=== PATIENT | male | born 1975 | race Caucasian/White ===

== ENCOUNTER 2016-10-07 03:24 | Inpatient (IN) ==
[2016-10-01 10:33] LABS: MANUAL DIFF NEEDED? NO
[2016-10-01 10:40] LABS: BASO% 0.7 % (0.0-0.8); EOS# 0.13 X1000 (0.0-0.7); EOS% 2.2 % (0.0-10.0); HEMATOCRIT 41.6 % (42.0-52.0); HEMOGLOBIN 14.2 g/dL (14.0-18.0); LYMPH# 1.95 X1000 (1.2-3.4); LYMPH% 32.5 % (20.5-51.1); MCH 30.4 PG (27-31); MCHC 34.1 g/dL (33-37); MCV 89.1 FL (81-99); NEUT% 49.6 % (42.2-75.2); PLT 279 X1000 (130-400); RBC 4.67 XMIL (4.7-6.1)
[2016-10-01 10:53] LABS: INR 0.97; PROTIME 10.2 Seconds (9.2-11.7); PTT 23.8 Seconds (22.0-36.0)
[2016-10-01 11:32] LABS: AGAP 13; BUN 10 mg/dL (8-22); CALCIUM 10.1 mg/dL (8.8-10.2); CHLORIDE 103 mmol/L (98-107); COSMO 275; POTASSIUM 4.7 mmol/L (3.5-5.1); SODIUM 138 mmol/L (136-145); TCO2 22 mmol/L (25-35)
[2016-10-07] MEDS ORDERED: COLACE ONE (06:25)
[2016-10-07] MEDS ORDERED: PEPCID ONE (06:26)
[2016-10-07] MEDS ORDERED: REGLAN ONE (06:26)
[2016-10-07] MEDS ORDERED: VALIUM ONE (06:26)
[2016-10-07] MEDS ORDERED: LYRICA ONE (06:26)
[2016-10-07] MEDS ORDERED: CELEBREX ONE (06:27)
[2016-10-07] MEDS ORDERED: LR 1,000 ML ONE ×2 (06:27→09:35)
[2016-10-07] MEDS ORDERED: LR 0 ML ONE (06:27)
[2016-10-07] MEDS ORDERED: TORADOL ONE (06:35)
[2016-10-07] MEDS ORDERED: MARCAINE 0.25% PF/EPI 1:200,000 ONE (06:36)
[2016-10-07] MEDS ORDERED: DURAMORPH ONE (06:36)
[2016-10-07] MEDS ORDERED: SODIUM CHLORIDE 0.9% ONE (06:36)
[2016-10-07] MEDS ORDERED: CYKLOKAPRON 1,000 MG/NS 1,000 MG/100 ML IVPB ONE (06:36)
[2016-10-07] MEDS ORDERED: CLAVE SECONDARY SET 11953 ONE ×2 (06:37→09:35)
[2016-10-07] MEDS ORDERED: NEOSPORIN G.U. IRRIGANT ONE (06:37)
[2016-10-07] MEDS ORDERED: EXPAREL 1.3% ONE (06:37)
[2016-10-07 06:44] LABS: URINE MICRO REVIEW NEEDED? NO; URINE SOURCE VOIDED
[2016-10-07 06:49] LABS: BILIRUBIN URINE NEGATIVE (NEGATIVE); BLOOD URINE NEGATIVE (NEGATIVE); COLOR YELLOW; GLUCOSE URINE NEGATIVE (NEGATIVE); LEUKOCYTES URINE NEGATIVE (NEGATIVE); NITRITE URINE NEGATIVE (NEGATIVE); PH URINE 5.5; PROTEIN URINE NEGATIVE (NEGATIVE); SP GRAVITY URINE 1.019; TURBIDITY URINE CLEAR (CLEAR); UROBILINOGEN URINE NORMAL (NORMAL)
[2016-10-07] MEDS ORDERED: KEFZOL 2 GM/D5W 2 GM/50 ML IVPB ONE (06:52)
--- NOTE | 2016-10-07 06:56 | HISTORY AND PHYSICAL ---
CHIEF COMPLAINT: Right hip pain. HISTORY OF PRESENT ILLNESS: This is a 41-year-old, white male with a history of bilateral degenerative hips. He had the left done in August and did well. Now, he is ready for his right hip replacement. He has been treated conservatively without relief. He was evaluated in the office and now ready for the right hip prosthesis. The surgical procedure, as well as risks and benefits were explained to patient at this time and he is ready to proceed. PAST MEDICAL HISTORY/ALLERGIES: Not allergic to any medications. PAST SURGERIES: T and A, appendectomy, left total hip arthroplasty. SERIOUS ILLNESSES: None. REGULAR MEDICATIONS: [place]enberg p.r.n. pain. and Flonase p.r.n. allergies. REVIEW OF SYSTEMS: HEENT: No history of migraines, dizziness, loss conscious or CVA. Respiratory: No history of asthma, emphysema, or shortness of breath. He is nonsmoker. Abdomen: No history of ulcer or digestive disorders. No history of bowel or bladder abnormalities. PHYSICAL EXAMINATION: GENERAL: This is a 41-year-old male, alert and oriented. His primary care physician is Dr. Chauhan. HEENT: Pupils equal, round, reactive. NECK: Good range of motion without adenopathy. RESPIRATORY: Respirations equal, unlabored, clear bilaterally. HEART: Regular rate and rhythm. ABDOMEN: Soft, nontender. Bowel sounds present. EXTREMITIES: He complains of pain about his right hip. He states he sometimes has difficulty walking due to the pain. The pain sometimes radiates down his leg. IMPRESSION: Degenerative disease, right hip. PLAN: Admit at this time for right total hip arthroplasty. Dictated by Brett Casillas RN for Lucio Cesar MD This chart was documented by the indicated scribe, Brett Casillas RN and accurately reflects the services I performed and decisions made by me, Lucio Cesar MD, as attested by the provider's signature. cc: Lucio Cesar MD
[2016-10-07] MEDS ORDERED: MORPHINE IV PRN (06:59)
[2016-10-07 07:14] LABS: UR EPITHELIAL CELLS <10 /HPF (<10); URINE BACTERIA NEGATIVE /HPF; URINE RBC <10 /HPF (<10); URINE WBC <10 /HPF (<10)
[2016-10-07 08:12] LABS: URINE SOURCE CATH
[2016-10-07 08:17] LABS: BILIRUBIN URINE NEGATIVE (NEGATIVE); BLOOD URINE NEGATIVE (NEGATIVE); CLARITY CLEAR (CLEAR); COLOR YELLOW; GLUCOSE URINE NEGATIVE (NEGATIVE); LEUKOCYTES URINE NEGATIVE (NEGATIVE); NITRITE URINE NEGATIVE (NEGATIVE); PH URINE 6.5; PROTEIN URINE NEGATIVE (NEGATIVE); SP GRAVITY URINE 1.015; UROBILINOGEN URINE 0.2 EU/dL (0.2-1.0)
[2016-10-07 08:22] LABS: URINE EPITHELIAL CELLS <10 /HPF (<10); URINE RBC <10 /HPF (<10); URINE WBC <10 /HPF (<10)
[2016-10-07] MEDS ORDERED: NS 1,000 ML ONE (09:14)
[2016-10-07] MEDS ORDERED: FENTANYL ONE (09:16)
[2016-10-07] MEDS ORDERED: DIPRIVAN 1% ONE (09:17)
[2016-10-07] MEDS ORDERED: MORPHINE ONE (09:26)
[2016-10-07] MEDS ORDERED: LABETALOL (DOSE) ONE (09:34)
[2016-10-07] MEDS ORDERED: ZOFRAN ONE (09:34)
[2016-10-07] MEDS ORDERED: NORCURON ONE (09:34)
[2016-10-07] MEDS ORDERED: NEOSTIGMINE ONE (09:34)
[2016-10-07] MEDS ORDERED: DECADRON ONE (09:35)
[2016-10-07] MEDS ORDERED: XYLOCAINE-MPF 2% ONE (09:35)
[2016-10-07] MEDS ORDERED: QUELICIN (DOSE) ONE (09:35)
[2016-10-07] MEDS ORDERED: ROBINUL ONE (09:35)
[2016-10-07] MEDS ORDERED: OFIRMEV 1000 MG/ISOTONIC SOLN 1,000 MG/100 ML BOTTLE ONE (09:35)
--- NOTE | 2016-10-07 09:50 | OPERATIVE NOTE ---
PROCEDURE DATE: 10/07/2016 PREOPERATIVE DIAGNOSIS: Avascular necrosis, right hip. POSTOPERATIVE DIAGNOSIS: Avascular necrosis, right hip. PROCEDURE PERFORMED: Right anterior hip replacement. SURGEON: Oskar Cesar MD ADVERTISING SPACE CLERK: LEIDY Hall ANESTHESIA: General. COMPLICATIONS: None. INDICATIONS FOR PROCEDURE: This is a 41-year-old male with right avascular necrosis of the hip, who presents for surgical hip replacement. Risks, benefits, and no guarantees were discussed, and the patient was willing to proceed. PROCEDURE IN DETAIL: He was taken to the operating room and satisfactory anesthesia obtained. The right hip was prepped and draped in the usual sterile fashion. He was transferred to the [place] table, where he was prepped and draped and a time-out taken to confirm operative site, procedure, and patient. An anterior approach to the right hip was then undertaken with an incision starting 1 cm distal and lateral to the anterior superior iliac spine. Dissection was carried down to the tensor fascia duane membrane which was split in line with the incision. Blunt dissection along the inner membrane of the tensor was undertaken to the anterior aspect of the hip capsule. Retractors were placed over the superior and inferior aspect of the femoral neck and a capsulotomy incision made. A femoral neck osteotomy was made and the femoral head removed. Sequential reaming of the acetabulum was undertaken to a 59 reamer. A DePuy [place] REYES coated 60 outer diameter cup was then impacted in the acetabulum with secure press-fit fixation under fluoroscopic guidance. This was positioned in roughly 45 degrees of abduction and 10 degrees to 15 degrees of anteversion. A 25 length screw was placed in the 12 o'clock position of the cup with a 36 inner diameter, 0 degree polyethylene liner. The liner was impacted with secure fixation. The [place] table was used to extend and externally rotate the femur to facilitate broaching of the proximal femur. Sequential broaching with a Xochitl (So-Shee) Gold minesuy Corail broach system up to a size 12 stem was undertaken with good fit and fill. A standard neck geometry with a +5 head was then trialed with good restorationist of the neck length and leg length and stability. The trial stem was removed and a Corail 12 standard neck geometry stem was impacted in the proximal femur with secure axial and rotational stability. A ceramic 36, +5 neck head was impacted on the May taper and the hip reduced. Final range of motion was assessed with no posterior instability and no anterior instability with the hip in roughly 15 degrees of extension and 80 degrees of external rotation. The C-arm was used to verify accurate fracture reduction, hardware placement, and restorationist of leg length. The wound was copiously irrigated with irrigant. A Hemovac drain was placed and brought out through the lateral aspect. The joint capsule was injected with Exparel for pain management. The fascia of the tensor was repaired with a running 0 Vicryl the subcu with 2-0 Vicryl, and the skin with skin belen. Sterile dressings completed the closure and the patient was recovered from anesthesia and transferred to the recovery room in stable condition. No intraoperative complications were noted. Instrument and sponge counts were correct at the time of closure. cc: Lucio Cesar MD
[2016-10-07] MEDS: DILAUDID ONE ×2 (09:59→14:54)
[2016-10-07] MEDS: NS 1,000 ML IV SCH ×2 (10:39→20:20)
[2016-10-07] MEDS: FLONASE NAS SCH (10:39)
[2016-10-07] MEDS: CELEBREX PO SCH (10:40)
[2016-10-07] MEDS: COLACE PO SCH ×2 (10:40→20:19)
[2016-10-07] MEDS: NORCO-10 PO PRN ×3 (11:57→20:19)
[2016-10-07] MEDS ORDERED: KEFZOL 1 GM/D5W 1 GM/50 ML IVPB IV SCH (15:00)
[2016-10-07] MEDS: PERIDEX MT SCH (20:20)
[2016-10-07] MEDS ORDERED: KEFZOL 2 GM/D5W 2 GM/50 ML IVPB IV ONE (23:30)
[2016-10-08] MEDS: NORCO-10 PO PRN ×4 (00:19→16:26)
[2016-10-08] MEDS: NS 1,000 ML IV SCH ×2 (04:16→09:56)
[2016-10-08] MEDS ORDERED: XARELTO PO SCH (06:00)
[2016-10-08 06:24] LABS: HEMATOCRIT 32.8 % (42.0-52.0); HEMOGLOBIN 10.7 g/dL (14.0-18.0)
[2016-10-08 07:23] LABS: AGAP 13; BUN 11 mg/dL (8-22); CALCIUM 9.3 mg/dL (8.8-10.2); CHLORIDE 101 mmol/L (98-107); COSMO 274; POTASSIUM 4.3 mmol/L (3.5-5.1); SODIUM 137 mmol/L (136-145); TCO2 23 mmol/L (25-35)
[2016-10-08] MEDS: PERIDEX MT SCH (08:37)
[2016-10-08] MEDS: COLACE PO SCH (08:37)
[2016-10-08] MEDS: CELEBREX PO SCH (08:37)
[2016-10-08] MEDS: FLONASE NAS SCH (08:37)
[2016-10-08 11:26] VITALS: BP 145/96
--- NOTE | 2016-10-09 05:36 | DISCHARGE SUMMARY ---
ADMISSION DATE: 10/07/2016 DISCHARGE DATE: 10/08/2016 ADMITTING DIAGNOSIS: Avascular necrosis of the right hip. ADDITIONAL DIAGNOSES: None. DISCHARGE DIAGNOSIS: Avascular necrosis of the right hip. ADMITTING HISTORY AND HOSPITAL COURSE: Mr. Alvarez has a history of bilateral avascular necrosis of the hips. He recently had his left hip replaced and he did well. He came back to have his right hip replaced. After the surgery yesterday, he remained afebrile. His vital signs remained stable. Currently, his hematocrit is 32.8. Vital signs are stable. He ambulated about 1000 feet with a front wheel walker. There are no signs or symptoms of infection or DVT. We plan to discharge him home today. He is going to have home health come out and work with him at home. DISCHARGE MEDICATIONS: 1. Flonase 1 spray nasally daily. 2. Blackstone 10 1 to 2 p.o. q.4-6 hours p.r.n. for pain. 3. Xarelto 10 mg p.o. daily for 14 days. DISCHARGE INSTRUCTIONS: Mr. Alvarez is to discharge home where he will begin a home physical therapy regimen having physical therapy coming out to the house. Discussed with him he is going home on a blood thinner, and pain medication. If he has any worsening signs or symptoms, he can call the office. If he has any questions at all, call the office. He will need to follow up with Dr. Cesar in about 10 days to have his belen removed and an additional followup appointment. Dictated by LEIDY Hall for Lucio Cesar MD cc: LEIDY Hall MD
== END 2016-10-08 17:31 | disposition home health service (06) ==
LOC: SURHOLD 03:24 → 4N 10:13
PROVIDERS: ADMIT Orthopaedic Surgery Adult Reconstructive Orthopaedic Surgery; ATTEND Orthopaedic Surgery Adult Reconstructive Orthopaedic Surgery